=== PATIENT | female | born 1990 | race Two or more races ===

== ENCOUNTER 2025-02-05 14:31 | Emergency (ER) | payer OTHER ==
[~2025-02-05] VITALS: Ht 157.5 cm; Wt 63.5 kg
[2025-02-05 15:16] LABS: APPEARANCE,URINE TURBID (CLEAR); BLOOD, URINE 3+ Ery/uL (NEGATIVE); LEUKOCYTE ESTERASE ,URINE TRACE (NEGATIVE); NITRITE, URINE NEGATIVE (NEGATIVE); UGLUCOSE NEGATIVE (NEGATIVE)
[2025-02-05 15:17] LABS: PREGNANCY TEST URINE QUAL NEGATIVE (NEGATIVE)
[2025-02-05] MEDS ORDERED: CEPH-570 PO (15:29)
[2025-02-05 15:32] LABS: ADD URINE CULTURE YES; SQUAMOUS EPITHELIAL CELL,UR Moderate /HPF (None Seen); URINE AMORPHOUS PHOSPHATES Few /HPF (None Seen)
[2025-02-05 15:43] VITALS: BP 139/84; TEMP 98.3; O2SAT 100
== END 2025-02-05 15:43 | disposition home or self-care (01) ==
LOC: ER 14:57
DX: R39.9 Unspecified symptoms and signs involving the genitourinary system (principal); R30.0 Dysuria; R39.15 Urgency of urination; R03.0 Elevated blood-pressure reading, without diagnosis of hypertension
CPT/HCPCS: 81001; 84703-TC; 87086-TC; 87186-TC